=== PATIENT | female | born 2000 | race Caucasian/White ===

== ENCOUNTER 2021-10-03 21:20 | Emergency (ER) | payer SELFPAY ==
[~2021-10-03] VITALS: Ht 162 cm; Wt 64.0 kg
[2021-10-03 22:40] VITALS: BP 120/82
[2021-10-03] MEDS ORDERED: KETOROLAC 30 MG/ML VIAL IM ONE (23:15)
[2021-10-03] MEDS ORDERED: ACETAMINOPHEN 500 MG TAB (TYLENOL) ONE (23:26)
[2021-10-03] MEDS ORDERED: ACETAMINOPHEN 500 MG TAB (TYLENOL) PO ONE (23:30)
--- NOTE | 2021-10-03 23:35 | ED Cough/URI ---
General Chief Complaint: COVID19 Suspect/Confirmed Stated Complaint: BODY ACHES;FEVER Nursing Triage Note: PT TO ER BY [facility] WITH C/O BODY ACHES AND POSSIBLY A FEVER Source: patient Allergies and Home Medications Allergies Coded Allergies: No Known Drug Allergies (Unverified , 10/03/21) Past Inkclsu-Vwsetl-Uwajoc Hx Patient Social History Tobacco Use?: No Substance use?: No Alcohol Use?: No Immunizations Up To Date Influenza Vaccine Up-to-Date: No; Not Current Past Medical History Last Menstrual Period: Sep 25, 2021 Physical Exam Vital Signs - First Documented 10/03/21 21:20 Temp 37.4 Pulse 99 Resp 19 B/P (MAP) 118/79 (92) Pulse Ox 97 O2 Delivery Room Air Capillary Refill : Height: '" Weight: lbs. oz. kg; 24.00 BMI Method: Progress/Results/Core Measures Suspected Sepsis SIRS Temperature: Pulse: 99 Respiratory Rate: 19 Blood Pressure 118 /79 Mean: 92 Results/Orders Lab Results Laboratory Tests Test 10/03/21 22:30 Range/Units Influenza Type A (RT-PCR) Not Detected Not Detecte Influenza Type B (RT-PCR) Not Detected Not Detecte SARS-CoV-2 RNA (RT-PCR) Detected H Not Detecte My Orders Orders - MARIELLA SIDDIQUI APRN Covid 19 Inhouse Test (10/03/21 21:27) Influenza A And B By Pcr (10/03/21 21:27) Ketorolac Injection (Toradol Injection) (10/03/21 23:15) Acetaminophen Tablet (Tylenol Tablet) (10/03/21 23:30) Acetaminophen Tablet (Tylenol Tablet) (10/03/21 23:26) Medications Given in ED Current Medications Medications Dose Ordered Sig/Francheska Route Start Time Stop Time Status Last Admin Dose Admin Ketorolac Tromethamine 30 mg ONCE ONCE IM 10/03/21 23:15 10/03/21 23:16 DC 10/03/21 23:24 30 MG Vital Signs/I&O 10/03/21 21:20 Temp 37.4 Pulse 99 Resp 19 B/P (MAP) 118/79 (92) Pulse Ox 97 O2 Delivery Room Air Capillary Refill : Blood Pressure Mean: 92 Departure Impression Primary Impression: COVID-19 Disposition: 01 HOME, SELF-CARE Condition: Improved Departure-Patient Inst. Decision time for Depature: 23:33 Patient Instructions: COVID-19 Overview Add. Discharge Instructions: Plan: 1. Isolate at home for 5 days. Then you can return to work and school with wearing a mask for 5 additional days while in public. 2. May take Tylenol and Ibuprofen as needed for pain per package. 3. Drink plenty of fluids to stay hydrated. 4. Follow up with your doctor for persistent symptoms. 5. Return for any new, concerning, or worsening symptoms. All discharge instructions reviewed with patient and/or family. Voiced understanding. MARIELLA SIDDIQUI FOOD SERVICE TECHNICIAN Oct 03, 2021 23:35
== END 2021-10-04 00:05 | disposition home or self-care (01) ==
LOC: ER 21:27
DX: U07.1 COVID-19 (principal)
CPT/HCPCS: 87636; 99284